=== PATIENT | female | born 1985 | race Caucasian/White ===

== ENCOUNTER 2017-02-07 21:16 | Emergency (ER) | payer MEDICARE, MEDICAID ==
[2017-02-07] MEDS ORDERED: SULFAMETHOXAZOLE/TRIMETHOPRI 800/160 MG PO ONE (21:52)
[2017-02-07] MEDS ORDERED: SULFAMETHOXAZOLE/TRIMETHOPRI 800/160 MG ONE (21:58)
[2017-02-07 22:06] VITALS: BP 151/98; PULSE 91; RESP 18; TEMP 98; O2SAT 98
== END 2017-02-07 22:10 | disposition home or self-care (01) | DRG 156 ==
LOC: ED 21:16
DX: H60.12 Cellulitis of left external ear (principal)
CPT/HCPCS: 99282; 99283

== ENCOUNTER 2017-02-15 21:25 | Emergency (ER) | payer MEDICARE, MEDICAID ==
[2017-02-15 21:36] VITALS: PULSE 104; RESP 20; TEMP 98.3; O2SAT 100
[2017-02-15] MEDS ORDERED: KETOROLAC TROMETHAMINE 30 MG/ML SOL IM ONE (21:56)
[2017-02-15] MEDS ORDERED: KETOROLAC TROMETHAMINE 30 MG/ML SOL ONE (22:01)
[2017-02-16 00:59] VITALS: BP 173/114
== END 2017-02-15 22:43 | disposition home or self-care (01) | DRG 558 ==
LOC: ED 21:25
DX: M70.41 Prepatellar bursitis, right knee (principal); W18.30XA Fall on same level, unspecified, initial encounter
CPT/HCPCS: 99282; J1885

== ENCOUNTER 2017-03-01 17:06 | Emergency (ER) | payer MEDICARE, MEDICAID ==
[2017-03-01 17:31] VITALS: RESP 16; TEMP 98.8; O2SAT 98
[2017-03-01 17:34] LABS: BASOPHILS % (AUTO) 1 % (0-3); EOSINOPHILS % (AUTO) 1 % (0-9); HEMATOCRIT 44 % (35-47); MEAN CORPUSCULAR HGB CONC 32.8 gm/dl (32.0-36.0); MEAN CORPUSCULAR VOLUME 90 fL (81-99); MONOCYTES % (AUTO) 5.3 % (0-12); NEUTROPHILS % (AUTO) 69.7 % (37-80)
[2017-03-01] MEDS ORDERED: LOPERAMIDE HYDROCHLORIDE 2 MG CAP PO ONE (17:40)
[2017-03-01 17:42] LABS: CALCIUM 8.4 mg/dl (8.5-10.1); POTASSIUM 3.5 mMol/L (3.5-5.1)
[2017-03-01] MEDS ORDERED: SODIUM CHLORIDE 0.9% 1000 ML SOL IV SCH (17:45)
[2017-03-01] MEDS ORDERED: SODIUM CHLORIDE 0.9% 1000ML 1,000 ML IV ONE (17:45)
[2017-03-01] MEDS ORDERED: LOPERAMIDE HYDROCHLORIDE 2 MG CAP ONE (17:49)
[2017-03-01 18:33] VITALS: BP 132/88; PULSE 88
== END 2017-03-01 18:50 | disposition home or self-care (01) | DRG 392 ==
LOC: ED 17:06
DX: K58.9 Irritable bowel syndrome, unspecified (principal)
CPT/HCPCS: 36415; 80048; 85025; 99283

== ENCOUNTER 2017-03-03 20:52 | Emergency (ER) | payer MEDICARE, MEDICAID ==
[2017-03-03] MEDS ORDERED: SODIUM CHLORIDE 0.9% FLUSH 10 ML SOL IV PRN (21:36)
[2017-03-03] MEDS ORDERED: SODIUM CHLORIDE 0.9% 1000ML 1,000 ML IV ONE (21:37)
[2017-03-03] MEDS ORDERED: METOCLOPRAMIDE HYDROCHLORIDE 5 MG/ML SOL IV ONE (21:38)
[2017-03-03] MEDS ORDERED: METOCLOPRAMIDE HYDROCHLORIDE 5 MG/ML SOL ONE (21:44)
[2017-03-03 21:47] LABS: BASOPHILS % (AUTO) 1 % (0-3); EOSINOPHILS % (AUTO) 1 % (0-9); HEMATOCRIT 40 % (35-47); MEAN CORPUSCULAR HGB CONC 34.6 gm/dl (32.0-36.0); MEAN CORPUSCULAR VOLUME 89 fL (81-99); MONOCYTES % (AUTO) 7.6 % (0-12)
[2017-03-03 22:01] LABS: ALBUMIN 3.2 gm/dl (3.4-5.0); CALCIUM 8.3 mg/dl (8.5-10.1); POTASSIUM 3.5 mMol/L (3.5-5.1)
[2017-03-03 23:12] VITALS: TEMP 98.4
[2017-03-04 01:08] VITALS: BP 129/80; PULSE 86; RESP 16; O2SAT 94
== END 2017-03-03 23:48 | disposition home or self-care (01) | DRG 392 ==
LOC: ED 20:52
DX: K58.1 Irritable bowel syndrome with constipation (principal)
CPT/HCPCS: 36415; 74020; 80053; 85025; 96365; 96374; 99283; 99284; J2765

== ENCOUNTER 2017-03-05 15:39 | Outpatient (CLI) | payer MEDICARE, MEDICAID ==
[2017-03-04 01:08] VITALS: O2SAT 94
== END 2017-03-05 15:40 | disposition home or self-care (01) | DRG 556 ==
LOC: CONVCARE 15:39
PROVIDERS: ATTEND Orthopaedic Surgery
DX: M25.571 Pain in right ankle and joints of right foot (principal)
CPT/HCPCS: 73610

== ENCOUNTER 2017-04-21 08:56 | Day surgery (SDC) | payer MEDICARE, MEDICAID ==
[~2017-04-21 08:56] MED LIST: LIDOCAINE HCL 1% MPF SOL ONE; PROPOFOL 500 MG/50 ML EMU IV ONE
[2017-04-21 09:23] VITALS: TEMP 97.4
[2017-04-21] MEDS ORDERED: PROPOFOL 500 MG/50 ML EMU IV ONE (10:42)
[2017-04-21] MEDS ORDERED: ONDANSETRON HCL 4 MG/2 ML SOL ONE (11:11)
[2017-04-21 11:40] VITALS: PULSE 79; RESP 20
[2017-04-21 11:47] VITALS: BP 138/89; O2SAT 97
== END 2017-04-21 12:05 | disposition home or self-care (01) | DRG 392 ==
LOC: SURG 08:56
PROVIDERS: ATTEND Internal Medicine Gastroenterology
DX: R10.9 Unspecified abdominal pain (principal); K64.8 Other hemorrhoids; R19.7 Diarrhea, unspecified; R11.2 Nausea with vomiting, unspecified; K44.9 Diaphragmatic hernia without obstruction or gangrene; K31.9 Disease of stomach and duodenum, unspecified
CPT/HCPCS: J2405; J2001; J2704

== ENCOUNTER 2017-04-26 16:24 | Emergency (ER) | payer MEDICARE, MEDICAID ==
[2017-04-26 17:09] VITALS: RESP 20; O2SAT 97
[2017-04-26 17:41] VITALS: BP 139/92; PULSE 91; TEMP 99.6
== END 2017-04-26 17:30 | disposition home or self-care (01) | DRG 203 ==
LOC: ED 16:24
DX: J20.9 Acute bronchitis, unspecified (principal); Z72.0 Tobacco use
CPT/HCPCS: 99282; 99283

== ENCOUNTER 2017-05-13 21:06 | Emergency (ER) | payer MEDICARE, MEDICAID ==
[2017-05-13] MEDS ORDERED: KETOROLAC TROMETHAMINE 30 MG/ML SOL IM ONE (22:15)
[2017-05-13] MEDS ORDERED: KETOROLAC TROMETHAMINE 30 MG/ML SOL ONE (22:33)
[2017-05-13 22:54] LABS: APPEARANCE,URINE Clear; BILIRUBIN,URINE NEGATIVE (NEGATIVE); COLOR,URINE Yellow; GLUCOSE, URINE (UA) NEGATIVE (NEGATIVE); KETONES,URINE NEGATIVE (NEGATIVE); LEUKOCYTE ESTERASE ,URINE NEGATIVE (NEGATIVE); NITRATE,URINE NEGATIVE (NEGATIVE); OCCULT BLOOD,URINE NEGATIVE (NEG-TRACE); PH,URINE 5.5; UROBILINOGEN,URINE 0.2 (0.2-1.0 EU)
[2017-05-13 23:03] LABS: BASOPHILS % (AUTO) 1 % (0-3); EOSINOPHILS % (AUTO) 2 % (0-9); HEMATOCRIT 38 % (35-47); MEAN CORPUSCULAR HGB CONC 35.2 gm/dl (32.0-36.0); MEAN CORPUSCULAR VOLUME 89 fL (81-99); MONOCYTES % (AUTO) 3.9 % (0-12); NEUTROPHILS % (AUTO) 63.4 % (37-80)
[2017-05-13 23:15] LABS: RBC,URINE NEGATIVE (0-3AV/HPF); WBC,URINE 0-1 (0-5AV/HPF)
[2017-05-13 23:17] LABS: ALBUMIN 3.1 gm/dl (3.4-5.0); CALCIUM 8.5 mg/dl (8.5-10.1); POTASSIUM 3.8 mMol/L (3.5-5.1)
[2017-05-13] MEDS ORDERED: DOXYCYCLINE 100 MG TAB PO ONE (23:38)
[2017-05-14] MEDS ORDERED: DOXYCYCLINE 100 MG TAB ONE (00:13)
[2017-05-14 01:19] VITALS: TEMP 97.8; O2SAT 98
[2017-05-14 01:21] VITALS: BP 138/93; PULSE 79; RESP 16
== END 2017-05-14 00:31 | disposition home or self-care (01) | DRG 392 ==
LOC: ED 21:06
DX: R10.30 Lower abdominal pain, unspecified (principal)
CPT/HCPCS: 36415; 80053; 81001; 85025; 87210; 96372; 99284; J1885

== ENCOUNTER 2017-08-30 01:39 | Emergency (ER) | payer MEDICARE, MEDICAID ==
[2017-08-30 01:51] VITALS: BP 132/84; PULSE 107; RESP 18; TEMP 100.5; O2SAT 94
[2017-08-30] MEDS ORDERED: SOLUMEDROL 125 MG/2 ML 125 MG/2 ML PDS IM ONE (02:41)
[2017-08-30] MEDS ORDERED: SOLUMEDROL 125 MG/2 ML 125 MG/2 ML PDS ONE (02:45)
== END 2017-08-30 02:53 | disposition home or self-care (01) | DRG 203 ==
LOC: ED 01:39
DX: J20.9 Acute bronchitis, unspecified (principal); Z72.0 Tobacco use
CPT/HCPCS: 71020; 87804; 99283; J2930

== ENCOUNTER 2017-08-31 09:14 | Emergency (ER) | payer MEDICARE, MEDICAID ==
[2017-08-31 09:28] VITALS: TEMP 99.7
[2017-08-31] MEDS ORDERED: ALBUTEROL/IPRATROPIUM 1 VIAL SOL INH ONE (09:36)
[2017-08-31] MEDS ORDERED: ALBUTEROL/IPRATROPIUM 1 VIAL SOL ONE (09:37)
[2017-08-31 09:47] VITALS: RESP 20
[2017-08-31 10:28] VITALS: BP 155/85; PULSE 115; O2SAT 89
== END 2017-08-31 10:14 | disposition left against medical advice (07) | DRG 203 ==
LOC: ED 09:14
DX: J41.0 Simple chronic bronchitis (principal); Z72.0 Tobacco use
CPT/HCPCS: 71275; 99283; J7620; Q9967

== ENCOUNTER 2017-09-15 21:41 | Emergency (ER) | payer MEDICARE, MEDICAID ==
[2017-09-15 22:22] VITALS: RESP 20; TEMP 99.2
[2017-09-15] MEDS ORDERED: SODIUM CHLORIDE 0.9% FLUSH 10 ML SOL IV PRN (22:41)
[2017-09-15] MEDS ORDERED: KETOROLAC TROMETHAMINE 30 MG/ML SOL IV ONE (22:41)
[2017-09-15] MEDS ORDERED: DIPHENHYDRAMINE 50 MG/ML SOL IV ONE (22:41)
[2017-09-15] MEDS ORDERED: SODIUM CHLORIDE 0.9% 1000ML 1,000 ML IV SCH (22:45)
[2017-09-15] MEDS ORDERED: KETOROLAC TROMETHAMINE 30 MG/ML SOL ONE (23:09)
[2017-09-15] MEDS ORDERED: DIPHENHYDRAMINE 50 MG/ML SOL ONE (23:09)
[2017-09-15 23:20] LABS: BASOPHILS % (AUTO) 1 % (0-3); EOSINOPHILS % (AUTO) 0 % (0-9); HEMATOCRIT 38 % (35-47); MEAN CORPUSCULAR HGB CONC 34.5 gm/dl (32.0-36.0); MEAN CORPUSCULAR VOLUME 88 fL (81-99); MONOCYTES % (AUTO) 4.1 % (0-12); NEUTROPHILS % (AUTO) 71.6 % (37-80)
[2017-09-15 23:23] LABS: CALCIUM 8.3 mg/dl (8.5-10.1); POTASSIUM 3.8 mMol/L (3.5-5.1)
[2017-09-16 00:55] VITALS: BP 131/87; PULSE 100; O2SAT 99
== END 2017-09-16 00:33 | disposition home or self-care (01) | DRG 102 ==
LOC: ED 21:41
DX: R51 Headache (principal); J18.9 Pneumonia, unspecified organism
CPT/HCPCS: 36415; 71020; 80048; 85025; 96365; 96374; 96375; 99283; 99285; J1200; J1885

== ENCOUNTER 2017-10-04 10:49 | Emergency (ER) | payer MEDICARE, MEDICAID ==
[2017-10-04 11:25] VITALS: TEMP 97.3
[2017-10-04 12:11] VITALS: BP 133/97; PULSE 93; RESP 20; O2SAT 99
== END 2017-10-04 12:07 | disposition home or self-care (01) | DRG 153 ==
LOC: ED 10:49
DX: J02.9 Acute pharyngitis, unspecified (principal)
CPT/HCPCS: 87430; 99282

== ENCOUNTER 2017-10-21 17:18 | Emergency (ER) | payer MEDICARE, MEDICAID ==
[2017-10-21 17:33] VITALS: TEMP 98.5
[2017-10-21 17:47] LABS: BASOPHILS % (AUTO) 1 % (0-3); EOSINOPHILS % (AUTO) 2 % (0-9); HEMATOCRIT 38 % (35-47); MEAN CORPUSCULAR HGB CONC 34.4 gm/dl (32.0-36.0); MEAN CORPUSCULAR VOLUME 87 fL (81-99); MONOCYTES % (AUTO) 6.3 % (0-12); NEUTROPHILS % (AUTO) 57.2 % (37-80)
[2017-10-21 18:09] LABS: ALBUMIN 3.1 gm/dl (3.4-5.0); ALT 28 IU/L (14-63); CALCIUM 8.6 mg/dl (8.5-10.1); GLOM FILT RATE 74 mL/min (>60); POTASSIUM 3.2 mMol/L (3.5-5.1); SODIUM 140 mMol/L (136-145); THYROID STIMULATING HORMONE 0.881 uIU/ml (0.358-3.740)
[2017-10-21 19:03] VITALS: RESP 18
[2017-10-21] MEDS ORDERED: POTASSIUM CHLORIDE 10 MEQ TER PO ONE (19:25)
[2017-10-21] MEDS ORDERED: POTASSIUM CHLORIDE 10 MEQ TER ONE (19:27)
[2017-10-21 19:31] LABS: APPEARANCE,URINE Clear; BILIRUBIN,URINE NEGATIVE (NEGATIVE); COLOR,URINE Yellow; GLUCOSE, URINE (UA) NEGATIVE (NEGATIVE); KETONES,URINE NEGATIVE (NEGATIVE); LEUKOCYTE ESTERASE ,URINE NEGATIVE (NEGATIVE); NITRATE,URINE NEGATIVE (NEGATIVE); OCCULT BLOOD,URINE NEGATIVE (NEG-TRACE); PH,URINE 5.5; UROBILINOGEN,URINE 0.2 (0.2-1.0 EU)
[2017-10-21 19:44] LABS: RBC,URINE NEG (0-3AV/HPF); TRICYCLIC ANTIDEPRESSANTS NEGATIVE (NEGATIVE); WBC,URINE NEG (0-5AV/HPF)
[2017-10-21 19:45] LABS: AMPHETAMINES NEGATIVE (NEGATIVE); METHADONE NEGATIVE (NEGATIVE); OPIATES(OP13) NEGATIVE (NEGATIVE); OXYCODONE(OXY) NEGATIVE (NEGATIVE); PROPOXYPHENE(PPX) NEGATIVE (NEGATIVE)
[2017-10-21] MEDS ORDERED: SODIUM CHLORIDE 0.9% FLUSH 10 ML SOL IV PRN (19:56)
[2017-10-21] MEDS: SODIUM CHLORIDE 0.9% 1000ML 1,000 ML IV SCH ×3 (19:56→22:00)
[2017-10-21] MEDS ORDERED: ONDANSETRON HCL 4 MG/2 ML SOL ONE ×2 (21:32→21:35)
[2017-10-21] MEDS ORDERED: SODIUM CHLORIDE 0.9% 1000ML 1,000 ML IV ONE ×2 (21:57→21:59)
[2017-10-21] MEDS ORDERED: ONDANSETRON HCL 4 MG/2 ML SOL IV ONE (21:57)
[2017-10-21 22:03] VITALS: BP 148/75; PULSE 96; O2SAT 97
== END 2017-10-21 21:39 | disposition short-term general hospital (02) | DRG 918 ==
LOC: ED 17:18
DX: T42.72XA Poisoning by unspecified antiepileptic and sedative-hypnotic drugs, intentional self-harm, initial encounter (principal); E87.6 Hypokalemia; F32.9 Major depressive disorder, single episode, unspecified; F41.1 Generalized anxiety disorder; R42 Dizziness and giddiness; R51 Headache
CPT/HCPCS: 36415; 80053; 80305; 80307; 81001; 84443; 84703; 85025; 99285; J2405

== ENCOUNTER 2017-12-01 19:07 | Emergency (ER) | payer MEDICARE, MEDICAID ==
[2017-12-01 19:39] VITALS: BP 168/118; PULSE 113; RESP 18; TEMP 97.8; O2SAT 98
== END 2017-12-01 20:38 | disposition home or self-care (01) | DRG 125 ==
LOC: ED 19:07
DX: H10.9 Unspecified conjunctivitis (principal); H92.03 Otalgia, bilateral; J06.9 Acute upper respiratory infection, unspecified
CPT/HCPCS: 87430; 87804; 99282

== ENCOUNTER 2018-01-20 21:15 | Emergency (ER) | payer MEDICARE, MEDICAID ==
[2018-01-20 21:22] VITALS: RESP 20
[2018-01-20 21:58] LABS: BASOPHILS % (AUTO) 1 % (0-3); EOSINOPHILS % (AUTO) 2 % (0-9); HEMATOCRIT 40 % (35-47); MEAN CORPUSCULAR HGB CONC 34.7 gm/dl (32.0-36.0); MEAN CORPUSCULAR VOLUME 85 fL (81-99); MONOCYTES % (AUTO) 5.3 % (0-12); NEUTROPHILS % (AUTO) 66.1 % (37-80)
[2018-01-20 22:00] LABS: APPEARANCE,URINE Clear; BILIRUBIN,URINE NEGATIVE (NEGATIVE); COLOR,URINE Yellow; GLUCOSE, URINE (UA) NEGATIVE (NEGATIVE); KETONES,URINE NEGATIVE (NEGATIVE); LEUKOCYTE ESTERASE ,URINE NEGATIVE (NEGATIVE); NITRATE,URINE NEGATIVE (NEGATIVE); OCCULT BLOOD,URINE NEGATIVE (NEG-TRACE); UROBILINOGEN,URINE 0.2 (0.2-1.0 EU)
[2018-01-20 22:11] LABS: ALBUMIN 3.5 gm/dl (3.4-5.0); CALCIUM 8.6 mg/dl (8.5-10.1); POTASSIUM 3.8 mMol/L (3.5-5.1)
[2018-01-20 22:23] LABS: RBC,URINE NEG (0-3AV/HPF); WBC,URINE 0-2 (0-5AV/HPF)
[2018-01-20 22:34] VITALS: BP 148/101; PULSE 95; TEMP 97.3; O2SAT 100
== END 2018-01-20 23:04 | disposition home or self-care (01) | DRG 781 ==
LOC: ED 21:15
DX: O26.891 Other specified pregnancy related conditions, first trimester (principal); M54.9 Dorsalgia, unspecified; Z3A.01 Less than 8 weeks gestation of pregnancy
CPT/HCPCS: 36415; 80053; 81001; 85025; 99282; 99283

== ENCOUNTER 2018-04-17 20:58 | Observation (INO) | payer MEDICARE, MEDICAID ==
[2018-04-17] MEDS ORDERED: SODIUM CHLORIDE 0.9% 1000ML 1,000 ML IV SCH (21:30)
[2018-04-17 21:41] LABS: BASOPHILS % (AUTO) 0 % (0-3); EOSINOPHILS % (AUTO) 2 % (0-9); HEMATOCRIT 37 % (35-47); HEMOGLOBIN 12.8 gm/dl (12.0-15.5); LYMPHOCYTES % (AUTO) 22.6 % (10-50); MEAN CORPUSCULAR HEMOGLOBIN 30.2 pg (27.0-32.0); MEAN CORPUSCULAR HGB CONC 34.8 gm/dl (32.0-36.0); MEAN CORPUSCULAR VOLUME 87 fL (81-99); MONOCYTES % (AUTO) 4.7 % (0-12); NEUTROPHILS % (AUTO) 70.6 % (37-80)
[2018-04-17 21:55] LABS: ALBUMIN 2.8 gm/dl (3.4-5.0); BILIRUBIN,TOTAL 0.2 mg/dl (0.2-1.0); CALCIUM 8.3 mg/dl (8.5-10.1); CARBON DIOXIDE 22.1 mEq/L (21-32); CREATININE 0.61 mg/dl (0.60-1.00); POTASSIUM 3.1 mMol/L (3.5-5.1); TOTAL PROTEIN 6.8 gm/dl (6.4-8.2)
[2018-04-17 22:06] LABS: APPEARANCE,URINE Clear; BILIRUBIN,URINE NEGATIVE (NEGATIVE); COLOR,URINE Yellow; GLUCOSE, URINE (UA) NEGATIVE (NEGATIVE); KETONES,URINE NEGATIVE (NEGATIVE); LEUKOCYTE ESTERASE ,URINE NEGATIVE (NEGATIVE); NITRATE,URINE NEGATIVE (NEGATIVE); OCCULT BLOOD,URINE NEGATIVE (NEG-TRACE); UROBILINOGEN,URINE 0.2 (0.2-1.0 EU)
[2018-04-17 22:16] LABS: BACTERIA TRACE (< 1+); CRYSTALS NEGATIVE (0-3 AVE/HPF); RBC,URINE 0-2 (0-3AV/HPF)
[2018-04-17] MEDS ORDERED: POTASSIUM CHLORIDE 2 MEQ/ML 20 MEQ, LIDOCAINE HCL 1% MDV 2 ML in SODIUM CHLORIDE 0.9% 2... IV ONE (22:43)
[2018-04-17] MEDS ORDERED: ONDANSETRON HCL 4 MG/2 ML SOL IV PRN (23:01)
[2018-04-17] MEDS ORDERED: DIPHENHYDRAMINE 25 MG CAP PO PRN (23:01)
[2018-04-17] MEDS ORDERED: POTASSIUM CHLORIDE 2 MEQ/ML SOL IV ONE (23:11)
[2018-04-17] MEDS ORDERED: LIDOCAINE HCL 1% MPF 30 SOL ONE (23:11)
[2018-04-17] MEDS ORDERED: DOXYLAMINE SUCCINATE 12.5 MG PO PRN (23:20)
[2018-04-17] MEDS ORDERED: ALBUTEROL HFA 60 PUFF/INHALER INH PRN (23:20)
[2018-04-17] MEDS ORDERED: VALACYCLOVIR HYDROCHLORIDE 1 GM TAB PO PRN (23:20)
[2018-04-17] MEDS ORDERED: PYRIDOXINE HCL 25 MG PO PRN (23:20)
[2018-04-17] MEDS ORDERED: ACETAMINOPHEN 500 MG 500 MG TAB PO PRN (23:20)
[2018-04-18] MEDS: SODIUM CHLORIDE 0.9% 1000ML 1,000 ML IV SCH ×2 (01:37→12:31)
[2018-04-18] MEDS ORDERED: MOMETASONE FUROATE APPL TOP SCH (09:00)
[2018-04-18] MEDS ORDERED: [UNRECOGNIZED DRUG - REMARK] PO SCH (09:00)
[2018-04-18] MEDS ORDERED: PANTOPRAZOLE SODIUM 40 MG ECT PO SCH (09:00)
[2018-04-18] MEDS ORDERED: COLESEVELAM HCL PO SCH (09:00)
[2018-04-18 09:56] VITALS: BP 120/70; PULSE 83; RESP 20; TEMP 97.4; O2SAT 98
[2018-04-18] MEDS ORDERED: METOCLOPRAMIDE HYDROCHLORIDE 5 MG/ML SOL IV ONE (11:30)
[2018-04-18] MEDS ORDERED: SODIUM CHLORIDE 0.9% FLUSH 10 ML SOL IV SCH (12:15)
== END 2018-04-18 13:40 | disposition home or self-care (01) | DRG 392 ==
LOC: ED 20:58 → ACUTE CARE 22:31
PROVIDERS: ADMIT Family Medicine; ATTEND Family Medicine
DX: R19.7 Diarrhea, unspecified (principal); E86.0 Dehydration; Z3A.16 16 weeks gestation of pregnancy
CPT/HCPCS: 36415; 80053; 81001; 82150; 84132; 85025; 96365; 99219; 99225; 99283; J2405; J2765; J3480; A9270-GY; J2001

== ENCOUNTER 2018-12-06 20:50 | Emergency (ER) | payer MEDICARE, MEDICAID ==
[2018-12-06] MEDS ORDERED: ONDANSETRON 4 MG ODT BU ONE (21:55)
[2018-12-06] MEDS ORDERED: HYDROMORPHONE HCL 2 MG/ML SOL IM ONE (21:56)
[2018-12-06] MEDS ORDERED: CYCLOBENZAPRINE 10 MG TAB PO ONE (21:56)
[2018-12-06 22:02] LABS: BASOPHILS % (AUTO) 1 % (0-3); EOSINOPHILS % (AUTO) 2 % (0-9); HEMATOCRIT 39 % (35-47); HEMOGLOBIN 12.8 gm/dl (12.0-15.5); LYMPHOCYTES % (AUTO) 29.8 % (10-50); MEAN CORPUSCULAR HEMOGLOBIN 29.4 pg (27.0-32.0); MEAN CORPUSCULAR HGB CONC 32.9 gm/dl (32.0-36.0); MEAN CORPUSCULAR VOLUME 89 fL (81-99); MONOCYTES % (AUTO) 6.4 % (0-12); NEUTROPHILS % (AUTO) 60.5 % (37-80)
[2018-12-06] MEDS ORDERED: HYDROMORPHONE 1 MG/ML SYRINGE ONE (22:10)
[2018-12-06] MEDS ORDERED: CYCLOBENZAPRINE 10 MG TAB ONE (22:10)
[2018-12-06] MEDS ORDERED: ONDANSETRON 4 MG ODT ONE (22:10)
[2018-12-06] MEDS ORDERED: DIPHENHYDRAMINE 25 MG CAP PO ONE (23:10)
[2018-12-06] MEDS ORDERED: DIPHENHYDRAMINE 25 MG CAP ONE (23:24)
[2018-12-07 00:04] VITALS: BP 144/90; PULSE 84; RESP 16; TEMP 97.2; O2SAT 97
== END 2018-12-06 23:53 | disposition home or self-care (01) | DRG 103 ==
LOC: ED 20:50
DX: G44.209 Tension-type headache, unspecified, not intractable (principal); L50.9 Urticaria, unspecified
CPT/HCPCS: 36415; 85025; 87430; 96372; 99282; 99283; A9270-GY; J1170

== ENCOUNTER 2018-12-14 17:43 | Emergency (ER) | payer MEDICARE, MEDICAID ==
[2018-12-14] MEDS ORDERED: DIPHENHYDRAMINE 50 MG/ML SOL IM ONE (18:07)
[2018-12-14] MEDS ORDERED: DIPHENHYDRAMINE 50 MG/ML SOL ONE (18:08)
[2018-12-14 18:19] VITALS: TEMP 99.1
[2018-12-14] MEDS ORDERED: SOLUMEDROL 125 MG/2 ML 125 MG/2 ML PDS IM ONE (18:19)
[2018-12-14] MEDS ORDERED: SOLUMEDROL 125 MG/2 ML 125 MG/2 ML PDS ONE (18:20)
[2018-12-14 18:46] VITALS: BP 123/82; PULSE 87; RESP 16
[2018-12-14 19:08] VITALS: O2SAT 98
== END 2018-12-14 18:56 | disposition home or self-care (01) | DRG 607 ==
LOC: SUPCPDRO 17:43 → ED 17:43
DX: L50.9 Urticaria, unspecified (principal); R49.0 Dysphonia
CPT/HCPCS: 96372; 99282; 99283; J1200; J2930

== ENCOUNTER 2019-07-24 20:52 | Emergency (ER) | payer MEDICARE, MEDICAID | END 2019-07-24 22:50 | disposition home or self-care (01) | LOC: ED 20:52 ==